=== PATIENT | female | born 1995 | race Hispanic/Latino ===

== ENCOUNTER 2018-02-24 22:49 | Emergency (ER) | payer SELFPAY ==
[2018-02-25 02:39] LABS: BASO # 0.1 10^3/uL (0.0-0.2); BASO % 0.6 % (0.0-1.0); EOS # 0.3 10^3/uL (0.0-0.50); EOS % 2.5 % (0.0-3.0); HEMATOCRIT 36.7 % (36.0-47.0); HEMOGLOBIN 12.4 g/dl (12.0-15.5); IMMATURE GRANULOCYTE % 0.2 % (0-3.0); LYMPH # 2.7 10^3/uL (1.5-6.5); LYMPH % 27.4 % (24.0-44.0); MEAN CORPUSCULAR HEMOGLOBIN 31.8 pg (27.0-33.0); MEAN CORPUSCULAR HGB CONC 33.8 g/dl (32.0-36.5); MEAN CORPUSCULAR VOLUME 94.1 fl (80.0-96.0); MONO # 0.6 10^3/uL (0.0-0.8); MONO % 5.5 % (0.0-5.0); NEUTROPHILS # 6.4 10^3/uL (1.8-7.7); NEUTROPHILS % 63.8 % (36.0-66.0); PLATELET COUNT, AUTOMATED 289 10^3/uL (150-450); RED CELL DISTRIBUTION WIDTH 12.3 % (11.5-14.5)
[2018-02-25 03:05] LABS: HCG, SERUM QUANTITATIVE 24 MIU/ML
== END 2018-02-25 04:18 | disposition home or self-care (01) ==
LOC: M ED 22:49
DX: O03.4 Incomplete spontaneous abortion without complication (principal)
CPT/HCPCS: 76801

== ENCOUNTER → 2018-07-06 | Outpatient (REF) | payer SELFPAY, OTHER | LOC: M LAB REF 17:19 | DX: R30.0 Dysuria (principal); R11.0 Nausea ==

== ENCOUNTER 2018-08-01 16:18 | Emergency (ER) | payer OTHER, SELFPAY ==
[2018-08-01 18:15] LABS: HEMATOCRIT 37.7 % (36.0-47.0); HEMOGLOBIN 12.9 g/dl (12.0-15.5); MEAN CORPUSCULAR HEMOGLOBIN 32.7 pg (27.0-33.0); MEAN CORPUSCULAR HGB CONC 34.2 g/dl (32.0-36.5); MEAN CORPUSCULAR VOLUME 95.7 fl (80.0-96.0); PLATELET COUNT, AUTOMATED 332 10^3/uL (150-450); RED BLOOD COUNT 3.94 10^6/uL (4.00-5.40); RED CELL DISTRIBUTION WIDTH 11.6 % (11.5-14.5); WHITE BLOOD COUNT 12.8 10^3/uL (4.0-10.0)
[2018-08-01 18:22] LABS: KETONE, URINE AUTO RFX 1+ mg/dL (NEGATIVE); LEUKOCYTE ESTERASE UR AUTO RFX NEGATIVE (NEGATIVE); NITRITE, URINE AUTO RFX NEGATIVE (NEGATIVE); RBC, URINE AUTO RFX 1 /HPF (0-3); SPECIFIC GRAVITY UR AUTO RFX 1.015 (1.002-1.035); SQUAM EPITHELIAL CELL UR AURFX 4 /HPF (0-6); WBC, URINE AUTO RFX 1 /HPF (0-3)
[2018-08-01] MEDS: METOCLOPRAMIDE 10 MG TAB PO (18:59)
[2018-08-01 19:06] LABS: ANION GAP 12 MEQ/L (8-16); BLOOD UREA NITROGEN 10 MG/DL (7-18); CALCIUM LEVEL 9.1 MG/DL (8.5-10.1); CARBON DIOXIDE LEVEL 24 MEQ/L (21-32); CHLORIDE LEVEL 103 MEQ/L (98-107); CREATININE FOR GFR 0.56 MG/DL (0.55-1.30); GLOMERULAR FILTRATION RATE > 60.0 (>60); GLUCOSE, FASTING 87 MG/DL (70-100); HCG, SERUM QUANTITATIVE 45505 MIU/ML; SODIUM LEVEL 139 MEQ/L (136-145)
== END 2018-08-01 19:26 | disposition home or self-care (01) ==
LOC: M ED 16:18
DX: O26.899 Other specified pregnancy related conditions, unspecified trimester (principal); R11.0 Nausea; R10.2 Pelvic and perineal pain
CPT/HCPCS: 76801

== ENCOUNTER → 2018-08-05 | Outpatient (CLI) | payer OTHER ==
[2018-08-05 18:19] LABS: BASO # 0.1 10^3/uL (0.0-0.2); BASO % 0.4 % (0.0-1.0); EOS # 0.1 10^3/uL (0.0-0.50); EOS % 0.9 % (0.0-3.0); HEMATOCRIT 38.4 % (36.0-47.0); HEMOGLOBIN 13.2 g/dl (12.0-15.5); IMMATURE GRANULOCYTE % 0.4 % (0-3.0); LYMPH # 2.4 10^3/uL (1.5-6.5); LYMPH % 17.6 % (24.0-44.0); MEAN CORPUSCULAR HEMOGLOBIN 32.7 pg (27.0-33.0); MEAN CORPUSCULAR HGB CONC 34.4 g/dl (32.0-36.5); MONO # 0.5 10^3/uL (0.0-0.8); NEUTROPHILS # 10.3 10^3/uL (1.8-7.7); NEUTROPHILS % 76.7 % (36.0-66.0); PLATELET COUNT, AUTOMATED 378 10^3/uL (150-450); RED BLOOD COUNT 4.04 10^6/uL (4.00-5.40); RED CELL DISTRIBUTION WIDTH 11.6 % (11.5-14.5); WHITE BLOOD COUNT 13.4 10^3/uL (4.0-10.0)
[2018-08-05 22:05] LABS: CHLAMYDIA DNA AMPLIFICATION NEGATIVE (NEGATIVE); GC DNA AMPLIFICATION NEGATIVE (NEGATIVE)
[2018-08-07 10:39] LABS: HBsAg Prenatal NEGATIVE (NEGATIVE); HIV 1&2 SCREEN CENTAUR NEGATIVE (NEGATIVE); RUBELLA IgG QUALITATIVE IMMUNE (IMMUNE)
[2018-08-07 10:39] LABS: HEPATITIS C VIRUS ABY INDEX 0.1 INDEX (<0.8)
== END ==
LOC: M SMT 15:32
DX: Z36.89 Encounter for other specified antenatal screening (principal)
CPT/HCPCS: 86762

== ENCOUNTER → 2018-10-16 | Outpatient (CLI) | payer OTHER ==
[~2018-10-16] MED LIST: REGL5TAB2 PO
--- NOTE | 2018-10-17 02:07 | REP ---
Clinical: Anatomical evaluation. Comparison: 08/01/2018 . Findings: Examination demonstrates a single live intrauterine in cephalic presentation. motion is identified by technologist. Placenta is noted anterior and grade grade 1 without evidence for placenta previa or abruption. Amniotic fluid volume is normal. Cervix measures 5.5 cm in length and appears closed. No evidence for nuchal cord. Gestational age by LMP 18 weeks 6 days with DAMON 03[birth year]/1990 . Gestational age by current measurements in 18 weeks 1 day with DAMON 05/06/1819 . FHR equals 153 beats per minute. BPD 3.9 cm 17 weeks 6 days HC 14.9 cm 18 weeks 0 days AC 12.9 cm 18 weeks 3 days FL 2.8 cm 18 weeks 3 days HL 2.7 cm 18 weeks 4 days HC/AC ratio 1.15 Estimated weight 239 grams ( 29th percentile). Anatomical assessment demonstrates normal structures including cranium, choroid plexus, cavum, cerebellum/posterior fossa, facial features, lungs, four-chamber heart/ left ventricular outflow tract, diaphragm, stomach, cord insertion/three-vessel cord, kidneys/bladder, and extremities. Limited evaluation of the right cardiac ventricular outflow tract and spine. Impression: Single live intrauterine in cephalic presentation demonstrating appropriate interval growth. Anatomical limitations as noted above. Remainder of the examination is normal. Electronically Signed by Jim Addison MD 10/17/2018 01:59 A
== END ==
LOC: M SMT 08:35
PROVIDERS: ATTEND Advanced Practice Midwife
DX: Z36.9 Encounter for antenatal screening, unspecified (principal); Z3A.18 18 weeks gestation of pregnancy

== ENCOUNTER → 2018-11-08 | Outpatient (CLI) | payer OTHER ==
--- NOTE | 2018-11-08 10:37 | REP ---
OB ULTRASOUND: Real-time sonographic evaluation of the gravid uterus performed. There is a single living intrauterine gestation, estimated gestational age 22 weeks 1 day. EDC 03/13/2019. Today's measurements indicate appropriate growth. BPD 53 mm 22 weeks 0 days, 47th percentile HC 192 mm 21 weeks 3 days, 31st percentile AC 181 mm 23 weeks 0 days, 69th percentile FL 40 mm 22 weeks 6 days, 67th percentile HC/AC ratio 1.06 within normal range. Estimated weight 528 grams, 66th percentile. heart rate 141 beats per minute. SEEN/GROSSLY UNREMARKABLE Lateral ventricles Yes Posterior fossa Yes Upper lip Yes Four-chamber heart Yes LVOT Yes RVOT No Stomach Yes Cord insertion Yes Three vessel cord Yes Kidneys Yes Bladder Yes Spine Yes position: Vertex. Placenta: Anterior and grade I with no previa or abruption. Amniotic fluid: Within normal limits. Cervix is closed and measures 4.4 cm in length. Electronically Signed by Ramo Meyers MD 11/08/2018 01:43 P
== END ==
LOC: M SMT 08:28
PROVIDERS: ATTEND Specialist
DX: Z34.82 Encounter for supervision of other normal pregnancy, second trimester (principal); Z3A.21 21 weeks gestation of pregnancy

== ENCOUNTER → 2018-12-06 | Outpatient (CLI) | payer OTHER ==
--- NOTE | 2018-12-06 09:55 | REP ---
OB ULTRASOUND: Real-time sonographic evaluation of the gravid uterus is performed. There is a single living intrauterine gestation. Estimated gestational age 26 weeks 1 day, EDC 03/13/2019. Today's measurements indicate appropriate growth. BPD 64 mm = 26 weeks 0 days, 40th percentile HC 238 mm = 25 weeks 6 days, 44th percentile AC 220 mm = 26 weeks 3 days, 56th percentile Femur length 49 mm = 26 weeks 3 days, 56th percentile HC/AC ratio 1.08 within normal range. Estimated weight 921 grams, 49th percentile. Cervix is closed and measures 3.4 cm in length. heart rate 150 beats per minute. SEEN/GROSSLY UNREMARKABLE Lateral ventricles Yes Posterior fossa Yes Upper lip Yes Four-chamber heart Yes LVOT Yes RVOT Yes Stomach Yes Cord insertion Yes Three vessel cord Yes Kidneys Yes Bladder Yes Spine Yes position: Vertex. Placenta: Anterior and grade 1 with no previa or abruption. Amniotic fluid: Within normal limits. Electronically Signed by Ramo Meyers MD 12/09/2018 10:56 A
== END ==
LOC: M SMT 08:00
PROVIDERS: ATTEND Advanced Practice Midwife
DX: Z36.89 Encounter for other specified antenatal screening (principal); Z3A.26 26 weeks gestation of pregnancy

== ENCOUNTER → 2018-12-10 | Outpatient (CLI) | payer OTHER ==
[2018-12-10 13:21] LABS: HEMOGLOBIN 11.2 g/dl (12.0-15.5); MEAN CORPUSCULAR HEMOGLOBIN 33.2 pg (27.0-33.0); MEAN CORPUSCULAR HGB CONC 32.9 g/dl (32.0-36.5); MEAN CORPUSCULAR VOLUME 100.9 fl (80.0-96.0); PLATELET COUNT, AUTOMATED 268 10^3/uL (150-450); RED BLOOD COUNT 3.37 10^6/uL (4.00-5.40); WHITE BLOOD COUNT 10.3 10^3/uL (4.0-10.0)
== END ==
LOC: M SMT 08:32
PROVIDERS: ATTEND Advanced Practice Midwife
DX: Z34.82 Encounter for supervision of other normal pregnancy, second trimester (principal)

== ENCOUNTER → 2019-01-12 | Outpatient (REF) | payer OTHER ==
[2019-01-12 21:42] LABS: APPEARANCE, URINE CLOUDY (CLEAR); BACTERIA, URINE AUTO 1+ (NEGATIVE); BILIRUBIN, URINE AUTO 1+ (NEGATIVE); BLOOD, URINE BLOOD NEGATIVE (NEGATIVE); COLOR, URINE AMBER (YELLOW); GLUCOSE, URINE (UA) AUTO 1+ mg/dL (NEGATIVE); KETONE, URINE AUTO TRACE mg/dL (NEGATIVE); LEUKOCYTE ESTERASE, URINE AUTO TRACE (NEGATIVE); MUCUS, URINE SMALL (NEGATIVE); NITRITE, URINE AUTO NEGATIVE (NEGATIVE); PROTEIN, URINE AUTO 1+ mg/dL (NEGATIVE); RBC, URINE AUTO 2 /HPF (0-3); SPECIFIC GRAVITY URINE AUTO 1.032 (1.002-1.035); SQUAMOUS EPITHELIAL CELL UR AU 43 /HPF (0-6); WBC, URINE AUTO 6 /HPF (0-3)
== END ==
LOC: M LAB REF 09:32
PROVIDERS: ATTEND Physician Assistant Medical
DX: N39.0 Urinary tract infection, site not specified (principal)

== ENCOUNTER 2019-02-06 09:29 | Outpatient (CLI) | payer OTHER ==
[~2019-02-06] VITALS: Ht 152.4 cm; Wt 88.9 kg
[2019-02-06] MEDS ORDERED: PRENTAB9 PO (09:42)
[2019-02-06 09:48] VITALS: BP 135/84
== END 2019-02-06 11:00 | disposition home or self-care (01) ==
LOC: M LDO 09:29
PROVIDERS: ATTEND Specialist
DX: O36.8130 Decreased fetal movements, third trimester, not applicable or unspecified (principal); O26.893 Other specified pregnancy related conditions, third trimester; R10.2 Pelvic and perineal pain; Z3A.39 39 weeks gestation of pregnancy
CPT/HCPCS: 59025; G0378; G0463

== ENCOUNTER → 2019-02-21 | Outpatient (REF) | payer OTHER ==
[~2019-02-21] MED LIST changes: +COLA100C5 PO; +IBUP80TA PO; +PERCOCET PO; +PRENTAB9 PO
== END ==
LOC: M LAB REF 17:00
PROVIDERS: ATTEND Advanced Practice Midwife
DX: O47.03 False labor before 37 completed weeks of gestation, third trimester (principal)

== ENCOUNTER 2019-02-26 22:08 | Inpatient (IN) | payer OTHER ==
[~2019-02-26] VITALS: Ht 152.4 cm; Wt 92.1 kg
[~2019-02-26 22:08] MED LIST changes: -COLA100C5 PO; -IBUP80TA PO; -PERCOCET PO
[2019-02-26 22:29] VITALS: BP 131/93
[2019-02-26 22:30] VITALS: BP 135/83
--- NOTE | 2019-02-26 23:55 | HPE ---
DATE OF ADMISSION: 02/26/2019 REASON FOR ADMISSION: Premature rupture of membranes. HISTORY OF PRESENT ILLNESS: Ms. Hector is a 23-year-old 3, para 0 who presents at 37 weeks, 1 day estimated gestational age by her last menstrual period, confirmed by first-trimester ultrasound with complaints of leakage of fluid. She reports gushes of clear fluid at approximately 9:30 this evening. This continued. She had some irregular contractions. Denies any vaginal bleeding. Reports active movement. course has been unremarkable. She initiated care in the first trimester and has been appropriate throughout. PAST MEDICAL HISTORY: None. PAST SURGICAL HISTORY: 1. Breast augmentation. 2. Liposuction MEDICATIONS: Include vitamins, Zantac, stool softener. ALLERGIES: She has no known drug allergies. SOCIAL HISTORY: Denies any alcohol, tobacco, or drug use during . OBSTETRICAL HISTORY: She is 3, para 0. She has had two miscarriages. PHYSICAL EXAMINATION: VITAL SIGNS: Stable. She is afebrile. She has category 1 heart rate tracing, heart rate 140s, moderate variability. Spontaneous accelerations. No decelerations. She has some irregular contractions on tocometer, approximately every 6-10 minutes apart. GENERAL APPEARANCE: Well appearing. No acute distress. LUNGS: Clear to auscultation bilaterally. CARDIOVASCULAR: Heart regular rate and rhythm. ABDOMEN: Gravid, nontender. Estimated weight (EFW) 3200 grams. Cervical exam: She is 1 cm dilated, 25% effaced, -3 station, grossly ruptured. LABORATORY DATA: Her blood type is A positive. Antibody screen is negative. Rubella is immune. RPR is nonreactive. Hepatitis surface antigen is negative. HIV is negative. Hepatitis C is nonreactive. Chlamydia and gonorrhea screens are negative. She had a normal 1-hour Glucola. She is GBS negative. ASSESSMENT: 1. Mrs. Hector is a 23-year-old 3, para 0 at 37 weeks, 1 day estimated gestational age with premature rupture of membranes. 2. Reassuring status. PLAN: 1 Admit to Labor delivery. Complete blood count (CBC), rapid plasma reagin (RPR), type and screen. 2. The patient has been thoroughly counseled regarding augmentation of labor. Discussed misoprostol as well as Pitocin for augmentation of labor. Discussed other medications as well as procedures performed in labor and delivery. She has also verbally consented for emergency surgery, blood products, anesthesia. Desires to proceed with admission .
[2019-02-26] MEDS: miSOPROStol 50 MCG 1/2 TAB (S0191) PO SCH (23:57)
[2019-02-26 23:58] VITALS: BP 133/81
[2019-02-27] VITALS (42 sets, daily range): BP systolic 113–163; BP diastolic 62–101
[2019-02-27 00:15] LABS: HEMATOCRIT 36.2 % (36.0-47.0); HEMOGLOBIN 12.5 g/dl (12.0-15.5); MEAN CORPUSCULAR HEMOGLOBIN 33.8 pg (27.0-33.0); MEAN CORPUSCULAR HGB CONC 34.5 g/dl (32.0-36.5); MEAN CORPUSCULAR VOLUME 97.8 fl (80.0-96.0); PLATELET COUNT, AUTOMATED 247 10^3/uL (150-450); WHITE BLOOD COUNT 11.6 10^3/uL (4.0-10.0)
[2019-02-27] MEDS: miSOPROStol 50 MCG 1/2 TAB (S0191) PO SCH (04:15)
[2019-02-27] MEDS ORDERED: PROMETHAZINE INJ 25 MG/ML VIAL (J2550) IV ONE (06:15)
[2019-02-27] MEDS ORDERED: BUTORPHANOL 2 MG/ML INJ (J0595) IV ONE (06:15)
--- NOTE | 2019-02-27 08:42 | NUR ---
L&D Note: S: more uncomfortable following stadol and phenergan O: vss, AF FHR 130s, moderate variability gen: NAD cx: 2/50/-3 A/P: 23yo PROM reassuring status -Epidural at request -start pitocin augmentation - re evaluate in 3-4 hrs Deya Jin MD
[2019-02-27] MEDS ORDERED: OXYTOCIN DRIP 30 UNITS in APPROPRIATE DILUENT 1 EA IV SCH (08:45)
[2019-02-27] MEDS: LR 1,000 ML IV SCH ×3 (08:54→16:17)
[2019-02-27] MEDS ORDERED: FENTANYL 2MCG/ML ROPIVACAINE 0.2% IN 0.9% NACL 100ML IVBAG As Ordered ONE (11:43)
[2019-02-27] MEDS: FENTANYL/ROPIVACAINE/NACL BAG 100 ML EPIDURAL SCH ×2 (12:52→23:00)
[2019-02-27] MEDS ORDERED: ONDANSETRON 4MG/2ML VIAL (J2405) IV PRN (13:15)
[2019-02-27] MEDS ORDERED: diphenhydrAMINE INJ 50MG/ML VIAL (J1200) IV PRN (13:15)
[2019-02-27] MEDS ORDERED: LACTATED RINGER'S 1000 ML IV PRN (13:15)
[2019-02-27] MEDS ORDERED: NALOXONE INJ 0.4 MG/1 ML VIAL (J2310) IV PRN (13:15)
[2019-02-27] MEDS ORDERED: EPIDURAL COMMENT XX SCH (13:15)
[2019-02-27] MEDS ORDERED: ePHEDrine SULFATE 25 MG/5 ML(5MG/ML) SYRINGE IV PRN (13:15)
[2019-02-27] MEDS ORDERED: REFRIGERATOR IV KEYS XX PRN (13:15)
[2019-02-27] MEDS ORDERED: EPIDURAL/PCA KEYS XX PRN (13:15)
--- NOTE | 2019-02-27 16:53 | NUR ---
L&D Note: S: comfortable after epidural O: vss, AF FHR 130s, moderate variability and accelerations gen: well appearing cx: 4/90/-2 A/P: 23yo PROM, protracted labor reassuring status -will recheck in 3hrs Deya Jin MD
--- NOTE | 2019-02-27 21:05 | NUR ---
L&D Note: S: comfortable after epidural O: vss, AF FHR 130s, moderate variability and accelerations gen: well appearing cx: 8/90/-2 A/P: 23yo PROM, protracted labor reassuring status -will recheck in 2-3hrs Deya Jin MD
[2019-02-28] VITALS (11 sets, daily range): BP systolic 103–147; BP diastolic 55–88
[2019-02-28] MEDS ORDERED: UNASYN 3 GM VIAL As Ordered ONE (00:20)
[2019-02-28] MEDS ORDERED: AMPICILLIN SOD/SULBACTAM SOD 3 GM in D5W MINI-BAG PLUS 100 ML IV STA (00:20)
[2019-02-28] MEDS ORDERED: BICITRA 30ML SOLN UDC PO ONE (00:30)
[2019-02-28] MEDS ORDERED: OXYTOCIN INJ 10 UNITS/ML VIAL (J2590) As Ordered ONE ×2 (00:39→01:21)
[2019-02-28] MEDS ORDERED: BUPIVACAINE/DEXTROSE 0.75% 2 ML AMP As Ordered ONE (00:39)
[2019-02-28] MEDS ORDERED: KETOROLAC 60 MG/2 ML VIAL (J1885) As Ordered ONE (00:39)
[2019-02-28] MEDS ORDERED: ONDANSETRON 4MG/2ML VIAL (J2405) As Ordered ONE (00:39)
[2019-02-28] MEDS ORDERED: MORPHINE PRES-FREE INJ 10 MG/10 ML VIAL (J2274) As Ordered ONE (00:39)
[2019-02-28] MEDS ORDERED: diphenhydrAMINE INJ 50MG/ML VIAL (J1200) IV PRN ×2 (00:53→01:45)
[2019-02-28] MEDS ORDERED: NALBUPHINE HCL 10 MG/ML AMP (J2300) IV PRN ×2 (00:53→01:45)
[2019-02-28] MEDS ORDERED: NALOXONE INJ 0.4 MG/1 ML VIAL (J2310) IV PRN ×2 (00:53)
[2019-02-28] MEDS ORDERED: ONDANSETRON 4MG/2ML VIAL (J2405) IV PRN ×3 (00:53→02:15)
[2019-02-28] MEDS ORDERED: METOCLOPRAMIDE INJ 10MG/2ML VIAL (J2765) IV PRN (00:53)
--- NOTE | 2019-02-28 00:54 | NUR ---
L&D Note: - Pushing for 1.5-2hrs without descent. C/C/0. Discussed continued pushing and reevaluation in 1 hrs vs 1LTCS. Desires to proceed with 1LTCS with indication ar rest of descent. Deya Jin MD
[2019-02-28] MEDS ORDERED: fentaNYL 100 MCG/2 ML INJECTION (J3010) IV PRN (01:45)
[2019-02-28] MEDS ORDERED: PERCOCET 5MG/325MG TAB PO PRN (01:45)
[2019-02-28] MEDS ORDERED: HYDROMORPHONE HCL 0.5 MG/ 0.5 ML SYRINGE (J1170 PER 1) IV PRN (01:45)
[2019-02-28] MEDS ORDERED: MEPERIDINE INJ 25 MG/ML VIAL (J2175) IV PRN (01:45)
[2019-02-28] MEDS ORDERED: OXYTOCIN DRIP 30 UNITS in APPROPRIATE DILUENT 1 EA IV SCH (02:13)
[2019-02-28] MEDS ORDERED: LR 1,000 ML IV SCH (02:13)
[2019-02-28] MEDS ORDERED: RHOGAM 300 MCG (1500 IU) INJ (J2790) IM SCH (02:15)
[2019-02-28] MEDS ORDERED: DOCUSATE SODIUM 100 MG CAP PO PRN (02:15)
[2019-02-28] MEDS ORDERED: PROMETHAZINE 25 MG TAB PO PRN (02:15)
[2019-02-28] MEDS ORDERED: MEASLES,MUMPS,RUBELLA VACCINE INJ (MMR-II) (90707) SC SCH (02:15)
[2019-02-28] MEDS ORDERED: MOM 30ML SUSPENSION UDC PO PRN (02:15)
[2019-02-28] MEDS ORDERED: OXYTOCIN 30 UNITS IN 0.9% NaCl 500ML IV BAG (J2590) As Ordered ONE (02:17)
--- NOTE | 2019-02-28 07:01 | RO ---
DATE OF PROCEDURE: 02/28/2019 PREOPERATIVE DIAGNOSIS: Arrest of descent. POSTOPERATIVE DIAGNOSIS: Arrest of descent. PROCEDURE: Primary lower transverse section. SURGEON: Deya Jin MD [employer]CHOOL COOK: Javier Hope ANESTHESIA: Spinal. ESTIMATED BLOOD LOSS: 600 mL. INTRAVENOUS FLUIDS: 1 liter of lactated Ringer's solution. URINE OUTPUT: 150 mL. OPERATIVE FINDINGS: Live born male , Apgars 9 and 9, weight was 6 pounds 2 ounces or 2790 grams. PREOPERATIVE ANTIBIOTICS: 2 grams of Unasyn. SPECIMENS: None. DESCRIPTION OF OPERATION: After informed consent was obtained and written consent was reviewed, the patient brought the operating room where spinal anesthesia was placed. She was then placed in lithotomy position with a left lateral tilt. She had previously had a Tinoco catheter which was placed to gravity. She was then prepped and draped in a normal sterile fashion. A time out in the operating room was then performed identifying the patient, the procedure be performed, as well as drug allergies. Anesthesia was tested and deemed to be adequate. A Pfannenstiel skin incision was then made and this was carried down to the underlying rectus fascia. The fascia was scored and this incision was extended bilaterally. The fascia was then dissected off the underlying rectus muscles both superiorly and inferiorly. The rectus muscles were in the midline. The peritoneum was then entered. Mobius retractor was then placed. The vesicouterine peritoneum was tented and incised to create a bladder flap. A curvilinear incision was then made in the lower uterine segment. This incision was extended. The head was brought through the incision atraumatically and delivered along with shoulders and corpus. Cord was clamped times two and was cut and the was taken over to the warmer with a good cry. The placenta was then delivered grossly intact. The uterus was then closed using #0 Vicryl in a running locking fashion followed by a second layer for imbrication in a running nonlocking fashion. The abdomen was then suctioned. The anterior peritoneum was then reapproximated with #3-0 Vicryl and the rectus muscles were reapproximated #3-0 Vicryl. The fascia was then closed with #0 Vicryl in a running nonlocking fashion. The subcutaneous tissue was then irrigated and suctioned. The subcutaneous tissue was then reapproximated with #3-0 Vicryl. Several subdermal stitches were placed of #3-0 Vicryl and the skin was closed with #4-0 Monocryl in subcuticular fashion. The incision was then cleaned and dried. Steri-Strips applied over it and incision was dressed. The patient was then taken to recovery in stable condition. Counts were correct. Dr. Hope my scheduling assistant played an essential role during the surgery. He assisted with tissue identification, retraction, delivery of the , as well as wound closure.
[2019-02-28] MEDS: PRENATAL VITAMINS CHEWABLE TABLET PO SCH (09:28)
[2019-02-28] MEDS: KETOROLAC 30 MG/ML VIAL (J1885) IV SCH ×3 (09:37→20:31)
[2019-03-01] VITALS (7 sets, daily range): BP systolic 113–135; BP diastolic 61–81
[2019-03-01] MEDS ORDERED: ePHEDrine SULFATE 25 MG/5 ML(5MG/ML) SYRINGE As Ordered ONE (03:05)
[2019-03-01] MEDS: IBUPROFEN 800 MG TAB PO SCH ×3 (04:40→20:18)
[2019-03-01] MEDS: PERCOCET 5MG/325MG TAB PO PRN ×4 (05:51→18:15)
[2019-03-01 07:01] LABS: HEMATOCRIT 29.2 % (36.0-47.0); HEMOGLOBIN 9.7 g/dl (12.0-15.5); MEAN CORPUSCULAR HEMOGLOBIN 33.4 pg (27.0-33.0); MEAN CORPUSCULAR HGB CONC 33.2 g/dl (32.0-36.5); MEAN CORPUSCULAR VOLUME 100.7 fl (80.0-96.0); PLATELET COUNT, AUTOMATED 194 10^3/uL (150-450); WHITE BLOOD COUNT 14.3 10^3/uL (4.0-10.0)
[2019-03-01] MEDS: PRENATAL VITAMINS CHEWABLE TABLET PO SCH (09:38)
--- NOTE | 2019-03-01 12:45 | NUR ---
POD# 1 S: Doing well w/o complaints. +voids, +ambulation and pain well controlled O: vss, AF gen: well appearing abd: soft, nttp ff@U incision: dressed ext: neg calf tenderness A/P: POD # 1 s/p primary c/s for arrest of descent, recovering in stable condition -continue routine care -anticipate d/c home tomorrow. Amanda Mccain, DO
[2019-03-02 02:02] VITALS: BP 116/61
[2019-03-02] MEDS: IBUPROFEN 800 MG TAB PO SCH (04:29)
[2019-03-02] MEDS: PERCOCET 5MG/325MG TAB PO PRN ×2 (04:30→08:33)
[2019-03-02 06:00] VITALS: BP 139/81
[2019-03-02] MEDS: PRENATAL VITAMINS CHEWABLE TABLET PO SCH (08:31)
--- NOTE | 2019-03-02 10:32 | NUR ---
Discharge Summary Date of admission: 02/26/2019 Date of discharge: 03/02/2019 Admitting diagnosis: 37+1 weeks gestation, prelabor rupture of membranes Discharge diagnosis: Status post, primary low transverse section. Single, liveborn delivered via . Indication: Arrest of descent Discharge Summary: 23 year-old G3 now P1. She was admitted on 02/26/2019 at 37+1 weeks EGA with a diagnosis of prelabor rupture of membranes. Course was complicated by arrest of descent. This prompted an unscheduled delivery on 02/28/2019. The delivery was uncomplicated and productive of a live male with a birthweight of, 6 lbs. 2 oz., 2790 g, and Apgars of, 9 and 9. The patient's intraoperative and postoperative courses were uncomplicated. By postoperative day #2, the patient was meeting all discharge criteria. Her pain was well controlled on oral pain meds. She was ambulating without assistance, voiding spontaneously, tolerating a regular diet, and her lochia/bleeding was minimal. Physical exam on date of discharge: Vitals: normotensive, normal HR, afebrile Heart: regular rate and rhythm with no murmurs, gallops, rubs. Lungs: clear to auscultation bilaterally, no wheezes, crackles, rales, ronchi Abd: soft, non-distended, appropriately tender. Normoactive bowel sounds. Incision: clean, dry, intact without surrounding erythema or induration. Ext: non-edematous, non-tender, negative Memo's sign bilaterally Assessment/Plan: 23 year-old G3 now P1 status post primary low transverse delivery on 02/28/2019 now postoperative day #2. Hemodynamically stable, afebrile, with good pain control. Meeting all discharge criteria. -Routine infectious, fever, pain, and bleeding precautions reviewed -Surgical wound/incisional care / precautions reviewed. -Discharge medications: Percocet, Motrin, Colace. -Outpatient follow up in 1-2 weeks for a routine incision / postoperative check. Dr. Darinel Mccain, DO, FACOG
[2019-03-02] MEDS ORDERED: COLA100C5 PO (10:34)
[2019-03-02] MEDS ORDERED: PERCOCET PO (10:34)
[2019-03-02] MEDS ORDERED: IBUP80TA PO (10:34)
== END 2019-03-02 13:35 | disposition home or self-care (01) | DRG 773 ==
LOC: M LDO 22:08 → M LDI 22:48 → M OBS 02-28 03:51
PROVIDERS: ADMIT Obstetrics & Gynecology; ATTEND Obstetrics & Gynecology
PROC: 10D00Z1 Extraction of Products of Conception, Low, Open Approach (ICD-10-PCS; principal; 2019-02-28 01:00)
DX: O41.03X0 Oligohydramnios, third trimester, not applicable or unspecified (principal); Z37.0 Single live birth; Z3A.37 37 weeks gestation of pregnancy; O32.4XX0 Maternal care for high head at term, not applicable or unspecified

== ENCOUNTER → 2019-02-26 | Outpatient (CLI) | payer OTHER ==
[2019-02-26 13:13] LABS: HEMATOCRIT 38.6 % (36.0-47.0); HEMOGLOBIN 13.1 g/dl (12.0-15.5); MEAN CORPUSCULAR HEMOGLOBIN 33.4 pg (27.0-33.0); MEAN CORPUSCULAR HGB CONC 33.9 g/dl (32.0-36.5); MEAN CORPUSCULAR VOLUME 98.5 fl (80.0-96.0); PLATELET COUNT, AUTOMATED 252 10^3/uL (150-450); RED BLOOD COUNT 3.92 10^6/uL (4.00-5.40); WHITE BLOOD COUNT 10.8 10^3/uL (4.0-10.0)
[2019-02-26 13:22] LABS: ALT/SGPT 12 U/L (12-78); BILIRUBIN,TOTAL 0.4 MG/DL (0.2-1.0); CREATININE FOR GFR 0.63 MG/DL (0.55-1.30); GLOMERULAR FILTRATION RATE > 60.0 (>60); LDH LACTATE DEHYDROGENASE 178 U/L (84-246); URIC ACID 4.3 MG/DL (2.6-6.0)
[2019-02-26 13:32] LABS: TOTAL PROTEIN,RANDOM URINE 38.6 MG/DL (0.0-12.0)
[2019-02-26 14:08] LABS: HIV 1&2 SCREEN CENTAUR NEGATIVE (NEGATIVE)
== END ==
LOC: M SMT 10:32
PROVIDERS: ATTEND Advanced Practice Midwife
DX: O16.3 Unspecified maternal hypertension, third trimester (principal); O47.03 False labor before 37 completed weeks of gestation, third trimester

== ENCOUNTER → 2019-05-08 | Outpatient (REF) | payer OTHER ==
[~2019-05-08] MED LIST changes: +COLA100C5 PO; +IBUP80TA PO; +PERCOCET PO
[2019-05-08 22:25] LABS: CHLAMYDIA DNA AMPLIFICATION NEGATIVE (NEGATIVE); GC DNA AMPLIFICATION NEGATIVE (NEGATIVE)
== END ==
LOC: M LAB REF 17:06
PROVIDERS: ATTEND Advanced Practice Midwife
DX: Z11.3 Encounter for screening for infections with a predominantly sexual mode of transmission (principal)

== ENCOUNTER → 2019-06-03 | Outpatient (CLI) | payer OTHER | LOC: M SMT 09:32 | PROVIDERS: ATTEND Advanced Practice Midwife | DX: Z12.4 Encounter for screening for malignant neoplasm of cervix (principal); N76.0 Acute vaginitis; Z13.79 Encounter for other screening for genetic and chromosomal anomalies ==